=== PATIENT | female | born 1985 | race Caucasian/White ===

== ENCOUNTER 2019-10-07 12:19 | Inpatient (IN) | payer BC, OTHER ==
[2019-10-07] MEDS ORDERED: Calcium Carbonate 500 MG Tab.Chew PO PRN (17:12)
[2019-10-07] MEDS ORDERED: Sodium Chloride 0.9% 10 ML Syringe FLUSH PRN (17:12)
[2019-10-07] MEDS ORDERED: Ondansetron 4 MG/2 ML SDV IVPUSH PRN (17:12)
[2019-10-07] MEDS ORDERED: Acetaminophen 325 MG Tab PO PRN (17:12)
[2019-10-07] MEDS ORDERED: Zolpidem 5 MG Tab PO PRN (17:12)
[2019-10-07] MEDS ORDERED: Oxytocin/Lactated Ringers 10 UNIT/1,000 ML BAG IV SCH ×2 (17:15)
--- NOTE | 2019-10-07 17:15 | PCM.LDHP ---
L&D History of Present Illness - General Date of Service: 10/07/19 Admit Problem/Dx: Patient Status Order with Admit Dx/Problem 10/07/19 17:12 Patient Status [ADT] Routine Admission Diagnosis/Problem Admission Diagnosis/Problem Normal Source of Information: Patient History Limitations: Reports: No Limitations - History of Present Illness Introduction:: Patient is a 34 y/o at 40 1/7 wks who presents for elective IOL. Insurance will be discontinued at the end of this month. Wanted to be delivered prior to that time. This was only opening available. Feeling well. No contractions. 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: , Therapeutic : 3 Para: 0 LMP (Approximate): Psychiatric History: Reports: Depression - Past Surgical History HEENT Surgical History: Reports: Oral Surgery Female Surgical History: Reports: Cervical Cryotherapy, D&C Social & Family History - Tobacco Use Smoking Status *Q: Never Smoker - Alcohol Use Alcohol Use History: No - Recreational Drug Use Recreational Drug Use: No H&P Review of Systems - Review of Systems: Review Of Systems: See Below General: Reports: No Symptoms Pulmonary: Reports: No Symptoms Cardiovascular: Reports: No Symptoms Gastrointestinal: Reports: No Symptoms Genitourinary: Reports: No Symptoms Musculoskeletal: Reports: No Symptoms Neurological: Reports: No Symptoms L&D Exam - Exam Exam: See Below - OB Specific Contraction Intensity: Irritability Movement: Active Heart Tones: Present Heart Tones per Min: 140 Heart Rate (FHR) Variability: Moderate (6-25 bmp) Presentation: Vertex - Watson Score Watson Score Cervix Position: Posterior Watson Score Consistency: Soft Watson Score Effacement: >80% Watson Score Dilation: Closed (0-1) Watson Score 's Station: -2 Watson Score Total: 6 - Exam General: Alert, Oriented, Cooperative Lungs: Clear to Auscultation, Normal Respiratory Effort Cardiovascular: Regular Rate, Regular Rhythm GI/Abdominal Exam: Soft, Non-Tender Genitourinary: Normal external exam Extremities: Normal Inspection Skin: Warm, Dry, Intact - Patient Data Result Diagrams: 10/07/19 17:55 10/07/19 17:55 - Problem List (1) 40 weeks gestation of SNOMED Code(s): 47401285 ICD Code: Z3A.40 - 40 WEEKS GESTATION OF Status: Acute Current Visit: Yes (2) Gestational hypertension SNOMED Code(s): 349723029 ICD Code: O13.9 - GESTATIONAL HTN W/O SIGNIFICANT PROTEINURIA, UNSP TRIMESTER Status: Acute Current Visit: Yes Qualifiers: Trimester: third trimester Qualified Code(s): O13.3 - Gestational [ -induced] hypertension without significant proteinuria, third trimester Problem List Initiated/Reviewed/Updated: Yes Orders Last 24hrs: Active Orders 24 hr Category Date Time Status Patient Status [ADT] Routine ADT 10/07/19 17:12 Ordered Communication Order [RC] ASDIRECTED Care 10/07/19 17:12 Ordered Communication Order [RC] ASDIRECTED Care 10/07/19 17:12 Ordered Communication Order [RC] ASDIRECTED Care 10/07/19 17:12 Ordered Monitoring [RC] INTERMITTENT Care 10/07/19 17:12 Ordered Non Stress Test [RC] PER UNIT ROUTINE Care 10/07/19 17:12 Ordered Notify Provider [RC] ASDIRECTED Care 10/07/19 17:12 Ordered Notify Provider [RC] PRN Care 10/07/19 17:12 Ordered Peripheral IV Care [RC] . DIRECTED Care 10/07/19 17:12 Ordered Vaginal Exam [RC] ASDIRECTED Care 10/07/19 17:12 Ordered Vital Signs [RC] ASDIRECTED Care 10/07/19 17:12 Ordered Regular Diet [DIET] Diet 10/07/19 Dinner Ordered CBC W/O DIFF,HEMOGRAM [HEME] Routine Lab 10/07/19 17:12 Ordered RAPID PLASMA REAGIN,RPR [CHEM] Routine Lab 10/07/19 17:12 Ordered TYPE AND SCREEN [BBK] Routine Lab 10/07/19 17:12 Ordered Acetaminophen [Tylenol] Med 10/07/19 17:12 Ordered 650 mg PO Q4H PRN Calcium Carbonate [Tums] Med 10/07/19 17:12 Ordered 1,000 mg PO Q2H PRN Lactated Ringers [Ringers, Lactated] 1,000 ml Med 10/07/19 17:15 Ordered IV ASDIRECTED Ondansetron [Zofran] Med 10/07/19 17:12 Ordered 4 mg IVPUSH Q4H PRN Oxytocin/Lactated Ringers [Pitocin in LR 10 Units/1,000 Med 10/07/19 17:15 Ordered ML] 10 unit in 1,000 ml IV .CONTINUOUS Oxytocin/Lactated Ringers [Pitocin in LR 10 Units/1,000 Med 10/07/19 17:15 Ordered ML] 10 unit in 1,000 ml IV TITRATE Sodium Chloride 0.9% [Saline Flush] Med 10/07/19 17:12 Ordered 10 ml FLUSH ASDIRECTED PRN Zolpidem [Ambien] Med 10/07/19 17:12 Ordered 5 mg PO BEDTIME PRN miSOPROStoL [Cytotec] Med 10/07/19 17:12 Ordered 25 mcg VAG Q4H PRN Electronic Heart Tones Internal [WOMSER] Per Unit Oth 10/07/19 17:12 Ordered Routine Medication Administration Instruction [OM.PC] Oth 10/07/19 17:15 Ordered ASDIRECTED Peripheral IV Insertion Adult [OM.PC] Routine Oth 10/07/19 17:12 Ordered Resuscitation Status Routine Resus Stat 10/07/19 17:12 Ordered Assessment/Plan Comment:: Gestational HTN * On admission pt also with consistent mild range BP's. Labs done and normal. Will monitor closely IOL * Labs done * GBS negative * Cytotec for IOL, pitocin/AROM when able * Pain management per patient preference * Anticipate
[2019-10-07] MEDS: Misoprostol 25 MCG (1/4 of 100 MCG) Tab VAG PRN ×2 (17:45→23:01)
[2019-10-07] MEDS ORDERED: diphenhydrAMINE 50 MG/ML SDV IVPUSH PRN (19:44)
[2019-10-07] MEDS ORDERED: ePHEDrine 50 MG/ML SDV IVPUSH PRN (19:44)
[2019-10-07] MEDS ORDERED: fentaNYL 100 MCG/2 ML SDV EPIDUR PRN (19:44)
[2019-10-07] MEDS ORDERED: Bupivacaine/fentaNYL/NS 100 ML Bag EPIDUR PRN (19:44)
[2019-10-08] MEDS: Misoprostol 25 MCG (1/4 of 100 MCG) Tab VAG PRN (03:11)
[2019-10-08] MEDS: Lactated Ringers 1,000 ML IV SCH ×3 (04:43→14:07)
[2019-10-08] MEDS ORDERED: Nalbuphine 10 MG/ML Syringe IM PRN (05:32)
[2019-10-08] MEDS ORDERED: Nalbuphine 10 MG/ML Syringe IVPUSH PRN (05:43)
--- NOTE | 2019-10-08 08:21 | PCM.PREANE ---
Preanesthetic Assessment - Anesthesia/Transfusion/Family Hx Anesthesia History: Prior Anesthesia Without Reaction Transfusion History: No Prior Transfusion(s) - Review of Systems General: No Symptoms Pulmonary: No Symptoms Cardiovascular: No Symptoms Gastrointestinal: No Symptoms Neurological: No Symptoms Other: Reports: None - Physical Assessment Vital Signs: Last Vital Signs Temp 98.7 F 10/07/19 17:12 Pulse 95 10/07/19 17:12 Resp 14 10/07/19 17:12 BP 135/92 H 10/07/19 17:12 Pulse Ox 98 10/07/19 17:12 Height: 1.7 m Weight: 128.82 kg ASA Class: 3 (morbid obesity) Mental Status: Alert & Oriented x3 Airway Class: Mallampati = 3 Dentition: Reports: Normal Dentition Thyro-Mental Finger Breadths: 3 Mouth Opening Finger Breadths: 3 ROM/Head Extension: Full Lungs: Clear to Auscultation, Normal Respiratory Effort Cardiovascular: Regular Rate, Regular Rhythm - Lab Values: Laboratory Last Values WBC 8.34 K/mm3 (3.98-10.04) 10/07/19 17:55 RBC 4.30 M/mm3 (3.98-5.22) 10/07/19 17:55 Hgb 12.5 gm/dl (11.2-15.7) 10/07/19 17:55 Hct 37.8 % (34.1-44.9) 10/07/19 17:55 MCV 87.9 fl (79.4-94.8) 10/07/19 17:55 MCH 29.1 pg (25.6-32.2) 10/07/19 17:55 MCHC 33.1 g/dl (32.2-35.5) 10/07/19 17:55 RDW Std Deviation 42.3 fL (36.4-46.3) 10/07/19 17:55 Plt Count 255 K/mm3 (182-369) 10/07/19 17:55 MPV 9.4 fl (9.4-12.3) 10/07/19 17:55 Creatinine 0.9 mg/dL (0.55-1.02) 10/07/19 17:55 Est Cr Clr Drug Dosing 84.84 mL/min 10/07/19 17:55 Estimated GFR (MDRD) > 60 mL/min (>60) 10/07/19 17:55 AST 20 U/L (15-37) 10/07/19 17:55 ALT 22 U/L (14-59) 10/07/19 17:55 Ur Random Creatinine 140.6 mg/dL (30.0-125.0) H 10/07/19 19:10 U Random Total Protein 7.5 mg/dL (0.0-11.8) 10/07/19 19:10 Protein/Creatinin Ratio 53.3 mg/g (0-149) 10/07/19 19:10 RPR Non-reactive (NONREACTIVE) 10/07/19 17:55 Blood Type B POSITIVE 10/07/19 17:55 Gel Antibody Screen Negative 10/07/19 17:55 - Allergies Allergies/Adverse Reactions: Allergies Allergy/AdvReac Type Severity Reaction Status Date / Time No Known Allergies Allergy Verified 10/07/19 17:40 - Acknowledgements Anesthesia Type Planned: Epidural Pt an Appropriate Candidate for the Planned Anesthesia: Yes Alternatives and Risks of Anesthesia Discussed w Pt/Guardian: Yes Pt/Guardian Understands and Agrees with Anesthesia Plan: Yes PreAnesthesia Questionnaire 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: , Therapeutic Psychiatric History: Reports: Depression, Suicide Attempt Endocrine/Metabolic History: Reports: Obesity/BMI 30+ - SUBSTANCE USE Smoking Status *Q: Never Smoker Second Hand Smoke Exposure: No Recreational Drug Use History: No - HOME MEDS Home Medications: Home Meds Docusate Sodium [Colace] 100 mg PO DAILY 10/07/19 [History] [id number]/Iron Fumarate/FA/DSS [ 19 Tablet] 1 tab PO DAILY 10/07/19 [ History] - CURRENT (IN HOUSE) MEDS Current Meds: Current Medications Acetaminophen (Tylenol) 650 mg PO Q4H PRN PRN Reason: Fever greater than 100.4 Calcium Carbonate/Glycine (Tums) 1,000 mg PO Q2H PRN PRN Reason: Indigestion Diphenhydramine HCl (Benadryl) 25 mg IVPUSH Q6H PRN PRN Reason: pruritis Ephedrine Sulfate (Ephedrine Sulfate) 5 mg IVPUSH ASDIRECTED PRN PRN Reason: Hypotension Fentanyl (Sublimaze) 100 mcg EPIDUR Q3H PRN PRN Reason: Pain Fentanyl/Bupivacaine HCl (Fentanyl/Bupivacaine/Ns 2 Mcg-0.125% 100 Ml) 100 ml EPIDUR ASDIRECTED PRN PRN Reason: Pain Lactated Ringer's (Ringers, Lactated) 1,000 mls @ 40 mls/hr IV ASDIRECTED SEJAL Last Admin: 10/08/19 04:43 Dose: 40 mls/hr Oxytocin/Lactated Ringer's (Pitocin In Lr 10 Units/1,000 Ml) 10 unit in 1,000 mls @ 12 mls/hr IV TITRATE SEJAL; Protocol Oxytocin/Lactated Ringer's (Pitocin In Lr 10 Units/1,000 Ml) 10 unit in 1,000 mls @ 500 mls/hr IV .CONTINUOUS SEJAL Nalbuphine HCl (Nubain) 10 mg IVPUSH Q3H PRN PRN Reason: Pain Last Admin: 10/08/19 05:43 Dose: 10 mg Ondansetron HCl (Zofran) 4 mg IVPUSH Q4H PRN PRN Reason: Nausea/Vomiting Sodium Chloride (Saline Flush) 10 ml FLUSH ASDIRECTED PRN PRN Reason: Keep Vein Open Zolpidem Tartrate (Ambien) 5 mg PO BEDTIME PRN PRN Reason: Insomnia Last Admin: 10/07/19 21:58 Dose: 5 mg Discontinued Medications Misoprostol (Cytotec) 25 mcg VAG Q4H PRN PRN Reason: cervical ripening Last Admin: 10/08/19 03:11 Dose: 25 mcg Nalbuphine HCl (Nubain) 10 mg IM Q3H PRN PRN Reason: Pain
--- NOTE | 2019-10-08 09:45 | PCM.SN ---
- Free Text/Narrative Note: 0940 Patient received 3 doses of cytotec overnight. When checked at 0700 this AM was thought to maybe be about 0.5-1 cm, but extremely thinned out and stretched to almost complete effacement. Questioned whether there was scarring preventing dilation. Patient requested epidural. This finally complete now. Now that patient more comfortable able to better check cervix and felt band of scar tissue release. Cervix went from 1 cm to 7 cm after this release of a band. AROM performed with release of scant amount of clear fluid. Continue present management. Pascale Dixon MD
--- NOTE | 2019-10-08 12:36 | PCM.DEL ---
L & D Note - General Info Date of Service: 10/08/19 - Delivery Note Labor: Augmented by ARM Cervical Ripening Method: Misoprostil Delivery Outcome: Livebirth Delivery Method: Spontaneous Vaginal Delivery-Single Infant Delivery Mode: Spontaneous Presentation: Right Occiput Anterior (KELVIN) Nuchal Cord: None Anesthesia Type: Epidural Amniotic Fluid Description: Clear Episiotomy Type: None Laceration: 2nd Degree Suture type: Vicryl Suture size: 2-0 Placenta: Intact, Spontaneous Cord: 3 Vessels Estimated Blood Loss: 200 [place]: Bulb Syringe, Stimulated, Warmed, [place] Used, Warmer Used Delivery Comments (Free Text/Narrative):: Patient found to be complete and began pushing. With maternal pushing effort head delivered from an KELVIN presentation. No nuchal cord present. With gentle downward traction the shoulders and body delivered. Infant placed on maternal abdomen. Cord clamped and cut. Cord blood obtained. Placenta allowed time to separate and expelled intact. Inspection of the perineum showed a 2nd degree laceration which was repaired with a 2-0 vicryl in the typical fashion - General Info Date of Service: 10/08/19 - Patient Data Vitals - Most Recent: Last Vital Signs Temp 37.1 C 10/07/19 17:12 Pulse 95 10/07/19 17:12 Resp 14 10/07/19 17:12 BP 135/92 H 10/07/19 17:12 Pulse Ox 98 10/07/19 17:12 Weight - Most Recent: 128.82 kg - Problem List & Annotations (1) 40 weeks gestation of SNOMED Code(s): 38213582 Code(s): Z3A.40 - 40 WEEKS GESTATION OF Status: Acute Current Visit: Yes (2) Gestational hypertension SNOMED Code(s): 575481549 Code(s): O13.9 - GESTATIONAL HTN W/O SIGNIFICANT PROTEINURIA, UNSP TRIMESTER Status: Acute Current Visit: Yes Qualifiers: Trimester: third trimester Qualified Code(s): O13.3 - Gestational [ -induced] hypertension without significant proteinuria, third trimester (3) Vaginal delivery SNOMED Code(s): 585353748 Code(s): O80 - ENCOUNTER FOR FULL-TERM UNCOMPLICATED DELIVERY Status: Acute Current Visit: Yes - Problem List Review Problem List Initiated/Reviewed/Updated: Yes - My Orders Last 24 Hours: My Active Orders 10/07/19 17:12 Patient Status [ADT] Routine Communication Order [RC] ASDIRECTED Communication Order [RC] ASDIRECTED Communication Order [RC] ASDIRECTED Monitoring [RC] INTERMITTENT Non Stress Test [RC] PER UNIT ROUTINE Notify Provider [RC] ASDIRECTED Notify Provider [RC] PRN Peripheral IV Care [RC] . DIRECTED Vaginal Exam [RC] ASDIRECTED Vital Signs [RC] ASDIRECTED Acetaminophen [Tylenol] 650 mg PO Q4H PRN Calcium Carbonate [Tums] 1,000 mg PO Q2H PRN Ondansetron [Zofran] 4 mg IVPUSH Q4H PRN Sodium Chloride 0.9% [Saline Flush] 10 ml FLUSH ASDIRECTED PRN Zolpidem [Ambien] 5 mg PO BEDTIME PRN Electronic Heart Tones Internal [WOMSER] Per Unit Routine Peripheral IV Insertion Adult [OM.PC] Routine Resuscitation Status Routine 10/07/19 17:15 Lactated Ringers [Ringers, Lactated] 1,000 ml IV ASDIRECTED Oxytocin/Lactated Ringers [Pitocin in LR 10 Units/1,000 ML] 10 unit in 1,000 ml IV .CONTINUOUS Oxytocin/Lactated Ringers [Pitocin in LR 10 Units/1,000 ML] 10 unit in 1,000 ml IV TITRATE Medication Administration Instruction [OM.PC] ASDIRECTED 10/07/19 Dinner Regular Diet [DIET] 10/08/19 05:43 Nalbuphine [Nubain] 10 mg IVPUSH Q3H PRN - Assessment Assessment:: PPD#0 - Plan Plan:: Gestational HTN * Will monitor BP's closely * Routine cares * Discharge home in 1-2 days
[2019-10-08] MEDS ORDERED: Acetaminophen 325 MG Tab PO PRN (13:55)
[2019-10-08] MEDS ORDERED: Docusate Sodium 100 MG Cap PO PRN (13:55)
[2019-10-08] MEDS ORDERED: Witch Hazel Medicated Pads 40/Jar TOP PRN (13:55)
[2019-10-08] MEDS ORDERED: Benzocaine/Menthol 20%-0.5% Spray 56 GM Canister TOP PRN (13:55)
[2019-10-08] MEDS: Ibuprofen 600 MG Tab PO PRN (14:13)
[2019-10-08] MEDS ORDERED: Bupivacaine 0.25% 10 ML SDV ONE (16:00)
[2019-10-08] MEDS ORDERED: Lidocaine 1.5% with EPINEPHrine 1:200,000 5 ML Amp ONE (16:00)
[2019-10-09] MEDS: Ibuprofen 600 MG Tab PO PRN ×2 (03:38→17:23)
--- NOTE | 2019-10-09 07:25 | PCM.LDHP ---
L&D History of Present Illness - General Date of Service: 10/09/19 Admit Problem/Dx: Patient Status Order with Admit Dx/Problem 10/07/19 17:12 Patient Status [ADT] Routine Admission Diagnosis/Problem Admission Diagnosis/Problem Normal - History of Present Illness Pain Score: 5 - Related Data Allergies/Adverse Reactions: Allergies Allergy/AdvReac Type Severity Reaction Status Date / Time No Known Allergies Allergy Verified 10/07/19 17:40 Home Medications: Home Meds Docusate Sodium [Colace] 100 mg PO DAILY 10/07/19 [History] [id number]/Iron Fumarate/FA/DSS [ 19 Tablet] 1 tab PO DAILY 10/07/19 [ History] Ibuprofen [Motrin] 600 mg PO Q6H PRN tablet 10/08/19 [Rx] 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: , Therapeutic Psychiatric History: Reports: Depression Endocrine/Metabolic History: Reports: Obesity/BMI 30+ - Past Surgical History HEENT Surgical History: Reports: Oral Surgery Female Surgical History: Reports: Cervical Cryotherapy, D&C Social & Family History - Family History Family Medical History: Noncontributory - Tobacco Use Smoking Status *Q: Never Smoker Second Hand Smoke Exposure: No - Recreational Drug Use Recreational Drug Use: No L&D Exam - Vital Signs Vital Signs: Last Vital Signs Temp 36.7 C 10/09/19 03:37 Pulse 85 10/09/19 03:37 Resp 15 10/09/19 03:37 BP 123/76 10/09/19 03:37 Pulse Ox 96 10/09/19 03:37 Weight: 128.82 kg - OB Specific Contraction Intensity: Irritability Movement: Active Heart Tones: Present Heart Tones per Min: 140 Heart Rate (FHR) Variability: Moderate (6-25 bmp) Presentation: Right Occiput Anterior (KELVIN) - Watson Score Watson Score Cervix Position: Posterior Watson Score Consistency: Soft Watson Score Effacement: >80% Watson Score Dilation: Closed (0-1) Watson Score Infant's Station: -2 Watson Score Total: 6 - Patient Data Result Diagrams: 10/07/19 17:55 10/07/19 17:55 - Problem List (1) 40 weeks gestation of SNOMED Code(s): 66935587 ICD Code: Z3A.40 - 40 WEEKS GESTATION OF Status: Acute Current Visit: Yes (2) Gestational hypertension SNOMED Code(s): 649114545 ICD Code: O13.9 - GESTATIONAL HTN W/O SIGNIFICANT PROTEINURIA, UNSP TRIMESTER Status: Acute Current Visit: Yes Qualifiers: Trimester: third trimester Qualified Code(s): O13.3 - Gestational [ -induced] hypertension without significant proteinuria, third trimester (3) Vaginal delivery SNOMED Code(s): 894380929 ICD Code: O80 - ENCOUNTER FOR FULL-TERM UNCOMPLICATED DELIVERY Status: Acute Current Visit: Yes Orders Last 24hrs: Active Orders 24 hr Category Date Time Status Activity as Tolerated [RC] PER UNIT ROUTINE Care 10/08/19 13:55 Active Vital Signs [RC] 09,15,, Care 10/08/19 13:55 Active Regular Diet [DIET] Diet 10/08/19 Lunch Active Acetaminophen [Tylenol] Med 10/08/19 13:55 Active 650 mg PO Q4H PRN Benzocaine/Menthol [Dermoplast Pain Relief [place]] Med 10/08/19 13:55 Active See Dose Instructions TOP ASDIRECTED PRN Docusate Sodium [Colace] Med 10/08/19 13:55 Active 100 mg PO BID PRN Ibuprofen [Motrin] Med 10/08/19 13:55 Active 600 mg PO Q6H PRN witch Adebayo [Tucks] Med 10/08/19 13:55 Active 1 pad TOP ASDIRECTED PRN Assess Lochia [WOMSER] Per Unit Routine Oth 10/08/19 13:55 Ordered Assess Uterine Involution [WOMSER] Per Unit Routine Oth 10/08/19 13:55 Ordered Breast Pump [WOMSER] Per Unit Routine Oth 10/08/19 13:55 Ordered Heat Therapy [OM.PC] PRN Oth 10/08/19 13:55 Ordered Heat Therapy [OM.PC] PRN Oth 10/09/19 13:55 Ordered Ice Therapy [OM.PC] Per Unit Routine Oth 10/08/19 13:55 Ordered Perineal Care [OM.PC] Per Unit Routine Oth 10/08/19 13:55 Ordered Peripheral IV Discontinue [OM.PC] Routine Oth 10/08/19 13:55 Ordered Sitz Bath [OM.PC] Per Unit Routine Oth 10/08/19 13:55 Ordered Medication Orders Acetaminophen (Tylenol) 650 mg PO Q4H PRN PRN Reason: mild pain or fever Benzocaine/Menthol (Dermoplast Pain Relief [place]) 0 gm TOP ASDIRECTED PRN PRN Reason: Perineal Comfort Measure Last Admin: 10/08/19 14:08 Dose: 1 can Docusate Sodium (Colace) 100 mg PO BID PRN PRN Reason: Constipation Ibuprofen (Motrin) 600 mg PO Q6H PRN PRN Reason: Mild pain or fever Last Admin: 10/09/19 03:38 Dose: 600 mg Admin: 10/08/19 14:13 Dose: 600 mg Witch Adebayo (Tucks) 1 pad TOP ASDIRECTED PRN PRN Reason: Perineal Comfort Measure Last Admin: 10/08/19 14:08 Dose: 1 tub Assessment/Plan Comment:: Gestational HTN * Will monitor BP's closely * Routine cares * Discharge home in 1-2 days
--- NOTE | 2019-10-09 07:26 | PCM.PNPP ---
- General Info Date of Service: 10/09/19 Functional Status: Reports: Pain Controlled, Tolerating Diet, Ambulating, Urinating - Review of Systems General: Reports: No Symptoms Pulmonary: Reports: No Symptoms Cardiovascular: Reports: No Symptoms Gastrointestinal: Reports: No Symptoms Genitourinary: Reports: No Symptoms Musculoskeletal: Reports: No Symptoms Neurological: Reports: No Symptoms - Patient Data Vital Signs - Most Recent: Last Vital Signs Temp 36.7 C 10/09/19 03:37 Pulse 85 10/09/19 03:37 Resp 15 10/09/19 03:37 BP 123/76 10/09/19 03:37 Pulse Ox 96 10/09/19 03:37 Weight - Most Recent: 128.82 kg I&O - Last 24 Hours: Intake & Output 10/08/19 10/09/19 10/09/19 22:59 06:59 14:59 Intake Total 2500 Balance 2500 Med Orders - Current: Current Medications Acetaminophen (Tylenol) 650 mg PO Q4H PRN PRN Reason: mild pain or fever Benzocaine/Menthol (Dermoplast Pain Relief [place]) 0 gm TOP ASDIRECTED PRN PRN Reason: Perineal Comfort Measure Last Admin: 10/08/19 14:08 Dose: 1 can Docusate Sodium (Colace) 100 mg PO BID PRN PRN Reason: Constipation Ibuprofen (Motrin) 600 mg PO Q6H PRN PRN Reason: Mild pain or fever Last Admin: 10/09/19 03:38 Dose: 600 mg Witch Adebayo (Tucks) 1 pad TOP ASDIRECTED PRN PRN Reason: Perineal Comfort Measure Last Admin: 10/08/19 14:08 Dose: 1 tub Discontinued Medications Acetaminophen (Tylenol) 650 mg PO Q4H PRN PRN Reason: Fever greater than 100.4 Calcium Carbonate/Glycine (Tums) 1,000 mg PO Q2H PRN PRN Reason: Indigestion Diphenhydramine HCl (Benadryl) 25 mg IVPUSH Q6H PRN PRN Reason: pruritis Ephedrine Sulfate (Ephedrine Sulfate) 5 mg IVPUSH ASDIRECTED PRN PRN Reason: Hypotension Fentanyl (Sublimaze) 100 mcg EPIDUR Q3H PRN PRN Reason: Pain Last Admin: 10/08/19 08:26 Dose: 100 mcg Fentanyl/Bupivacaine HCl (Fentanyl/Bupivacaine/Ns 2 Mcg-0.125% 100 Ml) 100 ml EPIDUR ASDIRECTED PRN PRN Reason: Pain Last Admin: 10/08/19 08:27 Dose: 100 ml Lactated Ringer's (Ringers, Lactated) 1,000 mls @ 40 mls/hr IV ASDIRECTED SEJAL Last Admin: 10/08/19 14:07 Dose: 40 mls/hr Oxytocin/Lactated Ringer's (Pitocin In Lr 10 Units/1,000 Ml) 10 unit in 1,000 mls @ 12 mls/hr IV TITRATE SEJAL; Protocol Oxytocin/Lactated Ringer's (Pitocin In Lr 10 Units/1,000 Ml) 10 unit in 1,000 mls @ 500 mls/hr IV .CONTINUOUS SEJAL Misoprostol (Cytotec) 25 mcg VAG Q4H PRN PRN Reason: cervical ripening Last Admin: 10/08/19 03:11 Dose: 25 mcg Nalbuphine HCl (Nubain) 10 mg IM Q3H PRN PRN Reason: Pain Nalbuphine HCl (Nubain) 10 mg IVPUSH Q3H PRN PRN Reason: Pain Last Admin: 10/08/19 05:43 Dose: 10 mg Ondansetron HCl (Zofran) 4 mg IVPUSH Q4H PRN PRN Reason: Nausea/Vomiting Sodium Chloride (Saline Flush) 10 ml FLUSH ASDIRECTED PRN PRN Reason: Keep Vein Open Zolpidem Tartrate (Ambien) 5 mg PO BEDTIME PRN PRN Reason: Insomnia Last Admin: 10/07/19 21:58 Dose: 5 mg - Infant Interaction Infant Disposition, : Icard in Room with Family Interaction: Holding Infant Feeding: Attempted ; Nursed Fair/Poor Support Person: - Recovery Exam Fundal Tone: Firm Fundal Level: 1 Fingerbreadths Below Umbilicus Fundal Placement: Midline Lochia Amount: Small Lochia Color: Rubra/Red Perineum Description: Other (see below) Other Perinuem Description: 2 nd degree repaired Episiotomy/Laceration: Approximated Bladder Status: Voiding Urinary Elimination: Voided - Exam General: Alert, Oriented, Cooperative GI/Abdominal Exam: Soft, Non-Tender Extremities: Normal Inspection Skin: Warm, Dry, Intact - Problem List & Annotations (1) 40 weeks gestation of SNOMED Code(s): 39160089 Code(s): Z3A.40 - 40 WEEKS GESTATION OF Status: Acute Current Visit: Yes (2) Gestational hypertension SNOMED Code(s): 022870784 Code(s): O13.9 - GESTATIONAL HTN W/O SIGNIFICANT PROTEINURIA, UNSP TRIMESTER Status: Acute Current Visit: Yes Qualifiers: Trimester: third trimester Qualified Code(s): O13.3 - Gestational [ -induced] hypertension without significant proteinuria, third trimester (3) Vaginal delivery SNOMED Code(s): 842259559 Code(s): O80 - ENCOUNTER FOR FULL-TERM UNCOMPLICATED DELIVERY Status: Acute Current Visit: Yes - Problem List Review Problem List Initiated/Reviewed/Updated: Yes - My Orders Last 24 Hours: My Active Orders 10/08/19 13:55 Activity as Tolerated [RC] PER UNIT ROUTINE Vital Signs [RC] 09,15,21,03 Acetaminophen [Tylenol] 650 mg PO Q4H PRN Benzocaine/Menthol [Dermoplast Pain Relief [place]] See Dose Instructions TOP ASDIRECTED PRN Docusate Sodium [Colace] 100 mg PO BID PRN Ibuprofen [Motrin] 600 mg PO Q6H PRN witch Adebayo [Tucks] 1 pad TOP ASDIRECTED PRN Assess Lochia [WOMSER] Per Unit Routine Assess Uterine Involution [WOMSER] Per Unit Routine Breast Pump [WOMSER] Per Unit Routine Heat Therapy [OM.PC] PRN Ice Therapy [OM.PC] Per Unit Routine Perineal Care [OM.PC] Per Unit Routine Peripheral IV Discontinue [OM.PC] Routine Sitz Bath [OM.PC] Per Unit Routine 10/08/19 Lunch Regular Diet [DIET] 10/09/19 13:55 Heat Therapy [OM.PC] PRN - Assessment Assessment:: PPD#1 - Plan Plan:: * Routine cares * Breast feeding * Discharge home in 1 day
--- NOTE | 2019-10-09 09:06 | PCM48HPAN ---
Post Anesthesia Note - EVALUATION WITHIN 48HRS OF ANESTHETIC Vital Signs in Normal Range: Yes Patient Participated in Evaluation: Yes Respiratory Function Stable: Yes Airway Patent: Yes Cardiovascular Function Stable: Yes Hydration Status Stable: Yes Pain Control Satisfactory: Yes Nausea and Vomiting Control Satisfactory: Yes Mental Status Recovered: Yes Vital Signs: Last Vital Signs Temp 98.1 F 10/09/19 03:37 Pulse 85 10/09/19 03:37 Resp 15 10/09/19 03:37 BP 123/76 10/09/19 03:37 Pulse Ox 96 10/09/19 03:37 - COMMENTS/OBSERVATIONS Free Text/Narrative:: Patient is on her day 1. Stated understanding about possible backaches following epidural anesthesia. Mentions having back soreness at this time 08/22. Explanation given about importance of avoiding back straining. Denies any headache or lightheadedness at this time. Comfortable now. Ambulating, no difficulty urinating.
[2019-10-10] MEDS: Ibuprofen 600 MG Tab PO PRN (02:59)
--- NOTE | 2019-10-10 07:14 | PCM.DCSUM1 ---
Discharge Summary - Discharge Data Discharge Date: 10/10/19 Discharge Disposition: Home, Self-Care 01 Condition: Good - Referral to Home Health Primary Care Physician: Renee Thomas MD - Discharge Diagnosis/Problem(s) (1) 40 weeks gestation of SNOMED Code(s): 95495513 ICD Code: Z3A.40 - 40 WEEKS GESTATION OF Status: Acute Current Visit: Yes (2) Gestational hypertension SNOMED Code(s): 123485957 ICD Code: O13.9 - GESTATIONAL HTN W/O SIGNIFICANT PROTEINURIA, UNSP TRIMESTER Status: Acute Current Visit: Yes Qualifiers: Trimester: third trimester Qualified Code(s): O13.3 - Gestational [ -induced] hypertension without significant proteinuria, third trimester (3) Vaginal delivery SNOMED Code(s): 404514496 ICD Code: O80 - ENCOUNTER FOR FULL-TERM UNCOMPLICATED DELIVERY Status: Acute Current Visit: Yes - Patient Summary/Data Complications: None Consults: None Recommended Follow-up Testing/Procedures: Follow up in 3 weeks for check Hospital Course: 34 y/o admitted at 40 1/7 wks for IOL . IOL done with cytotec and then AROM. Progressed well to complete dilation and underwent an uncomplicated . See delivery note. During IOL had some mild range BP's which resolved . Discharged home on PPD#2. - Patient Instructions Diet: Regular Diet as Tolerated Activity: As Tolerated Activity, Other: Pelvic rest for 6 weeks Driving: May Drive Today Showering/Bathing: May Shower Showering/Bathing, Other: May Bathe Notify Provider of: Fever, Increased Pain, Swelling and Redness, Drainage, Nausea and/or Vomiting - Discharge Plan *PRESCRIPTION DRUG MONITORING PROGRAM REVIEWED*: No *COPY OF PRESCRIPTION DRUG MONITORING REPORT IN PATIENT THELMA: No Home Medications: Home Meds Docusate Sodium [Colace] 100 mg PO DAILY 10/07/19 [History] ITY244/Iron Fumarate/FA/DSS [ 19 Tablet] 1 tab PO DAILY 10/07/19 [ History] Ibuprofen [Motrin] 600 mg PO Q6H PRN tablet 10/08/19 [Rx] Patient Handouts: Mastitis, Breast Engorgement, Care After Vaginal Delivery Referrals: Renee Thomas MD [Primary Care Provider] - (3 weeks for check ) - Discharge Summary/Plan Comment DC Time >30 min.: No - Patient Data Vitals - Most Recent: Last Vital Signs Temp 36.8 C 10/10/19 02:56 Pulse 80 10/10/19 02:56 Resp 16 10/10/19 02:56 BP 124/69 10/10/19 02:56 Pulse Ox 98 10/10/19 02:56 Weight - Most Recent: 128.82 kg I&O - Last 24 hours: Intake & Output 10/09/19 10/10/19 10/10/19 22:59 06:59 14:59 Intake Total 820 Balance 820 Med Orders - Current: Current Medications Acetaminophen (Tylenol) 650 mg PO Q4H PRN PRN Reason: mild pain or fever Benzocaine/Menthol (Dermoplast Pain Relief [place]) 0 gm TOP ASDIRECTED PRN PRN Reason: Perineal Comfort Measure Last Admin: 10/08/19 14:08 Dose: 1 can Docusate Sodium (Colace) 100 mg PO BID PRN PRN Reason: Constipation Ibuprofen (Motrin) 600 mg PO Q6H PRN PRN Reason: Mild pain or fever Last Admin: 10/10/19 02:59 Dose: 600 mg Witch Candice (Tucks) 1 pad TOP ASDIRECTED PRN PRN Reason: Perineal Comfort Measure Last Admin: 10/08/19 14:08 Dose: 1 tub Discontinued Medications Acetaminophen (Tylenol) 650 mg PO Q4H PRN PRN Reason: Fever greater than 100.4 Bupivacaine HCl (Sensorcaine-Mpf 0.25%) 10 ml .ROUTE .STK-MED ONE Stop: 10/08/19 16:01 Calcium Carbonate/Glycine (Tums) 1,000 mg PO Q2H PRN PRN Reason: Indigestion Diphenhydramine HCl (Benadryl) 25 mg IVPUSH Q6H PRN PRN Reason: pruritis Ephedrine Sulfate (Ephedrine Sulfate) 5 mg IVPUSH ASDIRECTED PRN PRN Reason: Hypotension Fentanyl (Sublimaze) 100 mcg EPIDUR Q3H PRN PRN Reason: Pain Last Admin: 10/08/19 08:26 Dose: 100 mcg Fentanyl/Bupivacaine HCl (Fentanyl/Bupivacaine/Ns 2 Mcg-0.125% 100 Ml) 100 ml EPIDUR ASDIRECTED PRN PRN Reason: Pain Last Admin: 10/08/19 08:27 Dose: 100 ml Lactated Ringer's (Ringers, Lactated) 1,000 mls @ 40 mls/hr IV ASDIRECTED SEJAL Last Admin: 10/08/19 14:07 Dose: 40 mls/hr Oxytocin/Lactated Ringer's (Pitocin In Lr 10 Units/1,000 Ml) 10 unit in 1,000 mls @ 12 mls/hr IV TITRATE SEJAL; Protocol Oxytocin/Lactated Ringer's (Pitocin In Lr 10 Units/1,000 Ml) 10 unit in 1,000 mls @ 500 mls/hr IV .CONTINUOUS SEJAL Lidocaine/Epinephrine (Xylocaine-Mpf 1.5% W/Epinephrine 1:200,000) 5 ml .ROUTE .[facility] ONE Stop: 10/08/19 16:01 Misoprostol (Cytotec) 25 mcg VAG Q4H PRN PRN Reason: cervical ripening Last Admin: 10/08/19 03:11 Dose: 25 mcg Nalbuphine HCl (Nubain) 10 mg IM Q3H PRN PRN Reason: Pain Nalbuphine HCl (Nubain) 10 mg IVPUSH Q3H PRN PRN Reason: Pain Last Admin: 10/08/19 05:43 Dose: 10 mg Ondansetron HCl (Zofran) 4 mg IVPUSH Q4H PRN PRN Reason: Nausea/Vomiting Sodium Chloride (Saline Flush) 10 ml FLUSH ASDIRECTED PRN PRN Reason: Keep Vein Open Zolpidem Tartrate (Ambien) 5 mg PO BEDTIME PRN PRN Reason: Insomnia Last Admin: 10/07/19 21:58 Dose: 5 mg
--- NOTE | 2019-10-10 07:14 | PCM.PNPP ---
- General Info Date of Service: 10/10/19 Functional Status: Reports: Pain Controlled, Tolerating Diet, Ambulating, Urinating - Review of Systems General: Reports: No Symptoms Pulmonary: Reports: No Symptoms Cardiovascular: Reports: No Symptoms Gastrointestinal: Reports: No Symptoms Genitourinary: Reports: No Symptoms Musculoskeletal: Reports: No Symptoms Neurological: Reports: No Symptoms - Patient Data Vital Signs - Most Recent: Last Vital Signs Temp 36.8 C 10/10/19 02:56 Pulse 80 10/10/19 02:56 Resp 16 10/10/19 02:56 BP 124/69 10/10/19 02:56 Pulse Ox 98 10/10/19 02:56 Weight - Most Recent: 128.82 kg I&O - Last 24 Hours: Intake & Output 10/09/19 10/10/19 10/10/19 22:59 06:59 14:59 Intake Total 820 Balance 820 Med Orders - Current: Current Medications Acetaminophen (Tylenol) 650 mg PO Q4H PRN PRN Reason: mild pain or fever Benzocaine/Menthol (Dermoplast Pain Relief [place]) 0 gm TOP ASDIRECTED PRN PRN Reason: Perineal Comfort Measure Last Admin: 10/08/19 14:08 Dose: 1 can Docusate Sodium (Colace) 100 mg PO BID PRN PRN Reason: Constipation Ibuprofen (Motrin) 600 mg PO Q6H PRN PRN Reason: Mild pain or fever Last Admin: 10/10/19 02:59 Dose: 600 mg Witch Candice (Tucks) 1 pad TOP ASDIRECTED PRN PRN Reason: Perineal Comfort Measure Last Admin: 10/08/19 14:08 Dose: 1 tub Discontinued Medications Acetaminophen (Tylenol) 650 mg PO Q4H PRN PRN Reason: Fever greater than 100.4 Bupivacaine HCl (Sensorcaine-Mpf 0.25%) 10 ml .ROUTE .STK-MED ONE Stop: 10/08/19 16:01 Calcium Carbonate/Glycine (Tums) 1,000 mg PO Q2H PRN PRN Reason: Indigestion Diphenhydramine HCl (Benadryl) 25 mg IVPUSH Q6H PRN PRN Reason: pruritis Ephedrine Sulfate (Ephedrine Sulfate) 5 mg IVPUSH ASDIRECTED PRN PRN Reason: Hypotension Fentanyl (Sublimaze) 100 mcg EPIDUR Q3H PRN PRN Reason: Pain Last Admin: 10/08/19 08:26 Dose: 100 mcg Fentanyl/Bupivacaine HCl (Fentanyl/Bupivacaine/Ns 2 Mcg-0.125% 100 Ml) 100 ml EPIDUR ASDIRECTED PRN PRN Reason: Pain Last Admin: 10/08/19 08:27 Dose: 100 ml Lactated Ringer's (Ringers, Lactated) 1,000 mls @ 40 mls/hr IV ASDIRECTED SEJAL Last Admin: 10/08/19 14:07 Dose: 40 mls/hr Oxytocin/Lactated Ringer's (Pitocin In Lr 10 Units/1,000 Ml) 10 unit in 1,000 mls @ 12 mls/hr IV TITRATE SEJAL; Protocol Oxytocin/Lactated Ringer's (Pitocin In Lr 10 Units/1,000 Ml) 10 unit in 1,000 mls @ 500 mls/hr IV .CONTINUOUS SEJAL Lidocaine/Epinephrine (Xylocaine-Mpf 1.5% W/Epinephrine 1:200,000) [address] .[facility] ONE Stop: 10/08/19 16:01 Misoprostol (Cytotec) 25 mcg VAG Q4H PRN PRN Reason: cervical ripening Last Admin: 10/08/19 03:11 Dose: 25 mcg Nalbuphine HCl (Nubain) 10 mg IM Q3H PRN PRN Reason: Pain Nalbuphine HCl (Nubain) 10 mg IVPUSH Q3H PRN PRN Reason: Pain Last Admin: 10/08/19 05:43 Dose: 10 mg Ondansetron HCl (Zofran) 4 mg IVPUSH Q4H PRN PRN Reason: Nausea/Vomiting Sodium Chloride (Saline Flush) 10 ml FLUSH ASDIRECTED PRN PRN Reason: Keep Vein Open Zolpidem Tartrate (Ambien) 5 mg PO BEDTIME PRN PRN Reason: Insomnia Last Admin: 10/07/19 21:58 Dose: 5 mg - Infant Interaction Disposition, : [place] in Room with Family Interaction: Holding Feeding: Attempted ; Nursed Fair/Poor Support Person: - Recovery Exam Fundal Tone: Firm Fundal Level: 1 Fingerbreadths Below Umbilicus Fundal Placement: Midline Lochia Amount: Scant Lochia Color: Rubra/Red Perineum Description: Other (see below) Other Perinuem Description: 2 nd degree repaired Episiotomy/Laceration: Approximated Bladder Status: Voiding Urinary Elimination: Voided - Exam General: Alert, Oriented, Cooperative GI/Abdominal Exam: Soft, Non-Tender Extremities: Normal Inspection Skin: Warm, Dry, Intact - Problem List & Annotations (1) 40 weeks gestation of SNOMED Code(s): 00695649 Code(s): Z3A.40 - 40 WEEKS GESTATION OF Status: Acute Current Visit: Yes (2) Gestational hypertension SNOMED Code(s): 231429896 Code(s): O13.9 - GESTATIONAL HTN W/O SIGNIFICANT PROTEINURIA, UNSP TRIMESTER Status: Acute Current Visit: Yes Qualifiers: Trimester: third trimester Qualified Code(s): O13.3 - Gestational [ -induced] hypertension without significant proteinuria, third trimester (3) Vaginal delivery SNOMED Code(s): 903997776 Code(s): O80 - ENCOUNTER FOR FULL-TERM UNCOMPLICATED DELIVERY Status: Acute Current Visit: Yes - Problem List Review Problem List Initiated/Reviewed/Updated: Yes - My Orders Last 24 Hours: My Active Orders 10/09/19 13:55 Heat Therapy [OM.PC] PRN 10/10/19 07:14 Ready for Discharge [RC] PER UNIT ROUTINE - Assessment Assessment:: PPD#2 - Plan Plan:: * Routine cares * Breast feeding\ * BP's normal * Discharge home today
== END 2019-10-10 08:50 | disposition home or self-care (01) | DRG 560 ==
LOC: JD.OB 12:19 → OBSVTOIN 10-08 12:19 → JD.OB 10-08 12:20
PROVIDERS: ADMIT Obstetrics & Gynecology; ATTEND Obstetrics & Gynecology
PROC: 10E0XZZ Delivery of Products of Conception, External Approach (ICD-10-PCS; principal; 2019-10-08)
PROC: 10907ZC Drainage of Amniotic Fluid, Therapeutic from Products of Conception, Via Natural or Artificial Opening (ICD-10-PCS; 2019-10-08)
PROC: 3E033VJ Introduction of Other Hormone into Peripheral Vein, Percutaneous Approach (ICD-10-PCS; 2019-10-08)
PROC: 3E0S3BZ Introduction of Anesthetic Agent into Epidural Space, Percutaneous Approach (ICD-10-PCS; 2019-10-08)
PROC: 3E0S33Z Introduction of Anti-inflammatory into Epidural Space, Percutaneous Approach (ICD-10-PCS; 2019-10-08)
DX: O13.4 Gestational [pregnancy-induced] hypertension without significant proteinuria, complicating childbirth (principal); O70.1 Second degree perineal laceration during delivery; Z3A.40 40 weeks gestation of pregnancy; Z37.0 Single live birth
CPT/HCPCS: 01967; 36415; 51702; 59025; 59409; 82565; 82570; 84156; 84450; 84460; 85027; 86592; 86850; 86900; 86901; A9270-GY; J2300; J3010; J3490; J7120